=== PATIENT | female | born 1990 | race Caucasian/White ===

== ENCOUNTER 2016-07-02 07:49 | Emergency (ER) | payer BC ==
[~2016-07-02] VITALS: Ht 172.7 cm; Wt 117.9 kg
[~2016-07-02 07:49] MED LIST: AMOXICILLIN500 M2 PO; AMOXICILLIN500 M3 PO; AMOXICILLIN500 MG PO; BACTRIM DS 8001 TA1 PO; CARAFATE1 G1 PO; CLARITIN10 MG PO; COLACE100 MG PO; FLEXERIL10 MG PO; FLONASE 0.05% 121 EA NAS; HYDROCODONE BIT1 T11 PO; KENALOG0.1% TP; MOTRIN800 MG PO; Meclizine25 MG PO; NKHM PO; NORCO 325 MG-101 TAB PO; NORCO 325 MG-51 TAB PO; PHENERGAN W/ DE30 ML PO; PHENERGAN W/DM120 ML PO; PHENERGAN25 M1 PO; PREDNICOT10 MG PO; PRILOSEC20 M1 PO; PROAIR HFA0.09 MG/AC INH; PYRIDIUM100 MG PO; SINGULAIR10 M1 PO; SUNMARK OMEPRAZ20 M1 PO; ZITHROMAX Z PA250 MG PO; ZOFRAN4 MG PO
[2016-07-02 07:52] VITALS: BP 154/82
[2016-07-02] MEDS ORDERED: Motrin,Rufen800 MG PO (09:10)
== END 2016-07-02 09:21 | disposition home or self-care (01) ==
LOC: ED 07:49
DX: M79.671 Pain in right foot (principal); F41.9 Anxiety disorder, unspecified; K21.9 Gastro-esophageal reflux disease without esophagitis

== ENCOUNTER 2016-08-16 20:43 | Emergency (ER) | payer OTHER, BC ==
[~2016-08-16] VITALS: Ht 172.7 cm; Wt 117.9 kg
[~2016-08-16 20:43] MED LIST changes: +Motrin,Rufen800 MG PO
[2016-08-16 21:12] VITALS: BP 145/92
[2016-08-16] MEDS ORDERED: NAPROSYN500 MG PO (22:48)
[2016-08-16] MEDS ORDERED: CYCLOBENZAPRINE10 MG PO (22:48)
== END 2016-08-16 23:15 | disposition home or self-care (01) ==
LOC: ED 20:43
DX: S16.1XXA Strain of muscle, fascia and tendon at neck level, initial encounter (principal); S40.022A Contusion of left upper arm, initial encounter; V49.59XA Passenger injured in collision with other motor vehicles in traffic accident, initial encounter; Y93.89 Activity, other specified; Y92.413 State road as the place of occurrence of the external cause; Y99.9 Unspecified external cause status

== ENCOUNTER → 2016-09-06 | Outpatient (CLI) | payer BC ==
[~2016-09-06] MED LIST changes: +CYCLOBENZAPRINE10 MG PO; +NAPROSYN500 MG PO
[2016-09-06 16:08] LABS: BASO # 0.1 10*3/uL (0.0-0.1); BASO % 0.7 % (0.0-1.0); EOS # 0.1 10*3/uL (0.0-0.4); EOS % 0.9 % (1.0-4.0); HEMATOCRIT 37.7 % (37.0-47.0); HEMOGLOBIN 12.2 g/dl (12.0-16.0); LYMPH # 1.6 10*3/uL (1.3-4.4); MEAN CELL VOLUME 83.6 fl (81.0-99.0); MEAN CORPUSCULAR HGB 27.1 pg (27.0-31.0); MEAN CORPUSCULAR HGB CONC 32.4 g/dl (33.0-37.0); MEAN PLATELET VOLUME 9.8 fl (9.6-12.3); MONO # 0.6 10*3/uL (0.1-1.0); MONO % 7.2 % (3.0-9.0); NEUT # 5.8 10*3/uL (2.3-7.9); PLATELET COUNT AUTOMATED 326 10*3/uL (130-400); RED BLOOD COUNT 4.51 10*6/uL (4.10-5.10); RED CELL DISTRI WIDTH 13.5 % (0-14.5); WHITE BLOOD COUNT 8.2 10*3/uL (4.8-10.8)
[2016-09-06 16:38] LABS: ALBUMIN 3.3 gm/dl (3.1-4.5); ALKALINE PHOSPHATASE 102 U/L (45-117); BILIRUBIN, TOTAL 0.3 mg/dl (0.2-1.0); BUN 15 mg/dl (7-24); CARBON DIOXIDE 26 mmol/L (21-32); CHLORIDE 106 mmol/L (98-107); EST GLOM FILT AFRICAN AMERICAN > 60 ml/min; GLUCOSE 84 mg/dL (65-99); SGOT/AST 12 IU/L (3-35); SGPT/ALT 22 U/L (12-78); SODIUM 141 mmol/L (136-145); TOTAL PROTEIN 7.5 gm/dL (6.4-8.2)
[2016-09-06 16:58] LABS: VITAMIN D, 25-HYDROXY 12.4 ng/mL (30-100)
[2016-09-06 16:59] LABS: FOLIC ACID 9.58 ng/mL (>5.38)
[2016-09-07 18:04] LABS: H.PYLORI IGM <9.0 units (0.0-8.9); H.PYLORI IgA 163170 <9.0 units (0.0-8.9)
== END | disposition home or self-care (01) ==
LOC: LAB 15:29
PROVIDERS: Nurse Practitioner Family
DX: N91.2 Amenorrhea, unspecified (principal); R53.83 Other fatigue; R12 Heartburn

== ENCOUNTER 2016-11-02 21:41 | Emergency (ER) | payer SELFPAY ==
[~2016-11-02] VITALS: Ht 172.7 cm; Wt 117.9 kg
[2016-11-02] MEDS ORDERED: VITAMIN D50000 I3 PO (21:50)
[2016-11-02] MEDS ORDERED: OMEPRAZOLE D/R20 MG PO (21:50)
[2016-11-02] MEDS ORDERED: B121000 MCG/1 IM (21:51)
[2016-11-02 22:30] LABS: BASO # 0.1 10*3/uL (0.0-0.1); BASO % 0.5 % (0.0-1.0); EOS % 0.4 % (1.0-4.0); HEMATOCRIT 40.5 % (37.0-47.0); LYMPH # 2.1 10*3/uL (1.3-4.4); LYMPH % 22.3 % (27.0-41.0); MEAN CELL VOLUME 83.3 fl (81.0-99.0); MEAN CORPUSCULAR HGB 26.7 pg (27.0-31.0); MEAN CORPUSCULAR HGB CONC 32.1 g/dl (33.0-37.0); MEAN PLATELET VOLUME 9.9 fl (9.6-12.3); MONO # 0.6 10*3/uL (0.1-1.0); MONO % 6.8 % (3.0-9.0); NEUT # 6.5 10*3/uL (2.3-7.9); NEUT % 69.8 % (47.0-73.0); PLATELET COUNT AUTOMATED 334 10*3/uL (130-400); RED BLOOD COUNT 4.86 10*6/uL (4.10-5.10); WHITE BLOOD COUNT 9.3 10*3/uL (4.8-10.8)
[2016-11-02 22:49] LABS: ALBUMIN 3.4 gm/dl (3.1-4.5); ALKALINE PHOSPHATASE 107 U/L (45-117); BILIRUBIN, TOTAL 0.2 mg/dl (0.2-1.0); BUN 15 mg/dl (7-24); CARBON DIOXIDE 25 mmol/L (21-32); CHLORIDE 106 mmol/L (98-107); EST GLOM FILT AFRICAN AMERICAN > 60 ml/min; GLUCOSE 110 mg/dL (65-99); POTASSIUM 3.5 mmol/L (3.5-5.1); SGOT/AST 14 IU/L (3-35); SGPT/ALT 28 U/L (12-78); SODIUM 137 mmol/L (136-145); TOTAL PROTEIN 7.8 gm/dL (6.4-8.2)
[2016-11-02 22:52] LABS: TROPONIN I < 0.015 ng/ml (<0.045)
[2016-11-02 23:00] LABS: BILIRUBIN NEGATIVE (NEGATIVE); BLOOD TRACE-INTACT (NEGATIVE); CLARITY CLEAR (CLEAR); COLOR YELLOW (YELLOW); GLUCOSE NEGATIVE (NEGATIVE); KETONE NEGATIVE (NEGATIVE); LEUKO ESTERASE NEGATIVE (NEGATIVE); NITRITE NEGATIVE (NEGATIVE); PROTEIN NEGATIVE (NEGATIVE); SPECIFIC GRAVITY 1.025 (1.005-1.030); UROBILINOGEN 0.2 E.U./dl (0.2-1.0)
[2016-11-02 23:08] LABS: BACTERIA TRACE; URINE REFLEX COMMENT YES (NO); WBC 0-2 wbc/hpf (0-5)
[2016-11-03 00:15] VITALS: BP 134/80
[2016-11-03] MEDS ORDERED: MECLIZINE HCL25 M2 PO (00:20)
== END 2016-11-03 00:42 | disposition home or self-care (01) ==
LOC: ED 21:41
PROVIDERS: Physician Assistant
DX: R00.0 Tachycardia, unspecified (principal); R42 Dizziness and giddiness

== ENCOUNTER 2017-07-13 13:35 | Emergency (ER) | payer OTHER ==
[~2017-07-13] VITALS: Ht 170.1 cm; Wt 131.5 kg
[~2017-07-13 13:35] MED LIST changes: +B121000 MCG/1 IM; +MECLIZINE HCL25 M2 PO; +OMEPRAZOLE D/R20 MG PO; +VITAMIN D50000 I3 PO
[2017-07-13 13:37] VITALS: BP 152/70
[2017-07-13 14:37] LABS: BILIRUBIN NEGATIVE (NEGATIVE); BLOOD 3+ (NEGATIVE); CLARITY CLEAR (CLEAR); COLOR YELLOW (YELLOW); GLUCOSE NEGATIVE (NEGATIVE); KETONE NEGATIVE (NEGATIVE); LEUKO ESTERASE NEGATIVE (NEGATIVE); NITRITE NEGATIVE (NEGATIVE); SPECIFIC GRAVITY 1.025 (1.005-1.030); UROBILINOGEN 0.2 E.U./dl (0.2-1.0)
[2017-07-13 14:44] LABS: BASO # 0.1 10*3/uL (0.0-0.1); BASO % 0.7 % (0.0-1.0); EOS % 0.5 % (1.0-4.0); HEMATOCRIT 40.1 % (37.0-47.0); HEMOGLOBIN 12.9 g/dl (12.0-16.0); LYMPH # 1.7 10*3/uL (1.3-4.4); LYMPH % 19.7 % (27.0-41.0); MEAN CELL VOLUME 83.4 fl (81.0-99.0); MEAN CORPUSCULAR HGB 26.8 pg (27.0-31.0); MEAN CORPUSCULAR HGB CONC 32.2 g/dl (33.0-37.0); MEAN PLATELET VOLUME 9.6 fl (9.6-12.3); MONO # 0.5 10*3/uL (0.1-1.0); MONO % 6.3 % (3.0-9.0); NEUT # 6.2 10*3/uL (2.3-7.9); NEUT % 72.6 % (47.0-73.0); PLATELET COUNT AUTOMATED 382 10*3/uL (130-400); RED BLOOD COUNT 4.81 10*6/uL (4.10-5.10); RED CELL DISTRI WIDTH 13.6 % (0-14.5); WHITE BLOOD COUNT 8.5 10*3/uL (4.8-10.8)
[2017-07-13 14:45] LABS: BACTERIA TRACE; WBC 0-2 wbc/hpf (0-5)
[2017-07-13 15:00] LABS: ALBUMIN 3.5 gm/dl (3.1-4.5); ALKALINE PHOSPHATASE 110 U/L (45-117); BUN 14 mg/dl (7-24); CHLORIDE 102 mmol/L (98-107); POTASSIUM 3.9 mmol/L (3.5-5.1); SGOT/AST 11 IU/L (3-35); SGPT/ALT 25 U/L (12-78); SODIUM 137 mmol/L (136-145); TOTAL PROTEIN 7.7 gm/dL (6.4-8.2)
[2017-07-13] MEDS ORDERED: ZOFRAN ODT4 MG SL (15:09)
== END 2017-07-13 16:30 | disposition home or self-care (01) ==
LOC: ED 13:35
PROVIDERS: Physician Assistant
DX: R11.0 Nausea (principal); R42 Dizziness and giddiness; K21.9 Gastro-esophageal reflux disease without esophagitis; Z79.899 Other long term (current) drug therapy

== ENCOUNTER 2017-10-10 22:03 | Emergency (ER) | payer OTHER ==
[~2017-10-10] VITALS: Ht 172.7 cm; Wt 127.0 kg
[~2017-10-10 22:03] MED LIST changes: +ZOFRAN ODT4 MG SL
[2017-10-10 22:04] VITALS: BP 128/84
[2017-10-10] MEDS ORDERED: Motrin,Rufen800 MG PO (23:33)
== END 2017-10-10 23:55 | disposition home or self-care (01) ==
LOC: ED 22:03
DX: S93.602A Unspecified sprain of left foot, initial encounter (principal); Z79.899 Other long term (current) drug therapy; X50.1XXA Overexertion from prolonged static or awkward postures, initial encounter; Y93.89 Activity, other specified; Y92.89 Other specified places as the place of occurrence of the external cause; Y99.8 Other external cause status

== ENCOUNTER 2017-10-18 19:19 | Emergency (ER) | payer OTHER ==
[~2017-10-18] VITALS: Ht 172.7 cm; Wt 117.9 kg
[2017-10-18 19:20] VITALS: BP 131/77
== END 2017-10-18 20:53 | disposition home or self-care (01) ==
LOC: ED 19:19
DX: S93.402A Sprain of unspecified ligament of left ankle, initial encounter (principal); Z79.899 Other long term (current) drug therapy; W01.0XXA Fall on same level from slipping, tripping and stumbling without subsequent striking against object, initial encounter; Y93.89 Activity, other specified; Y92.89 Other specified places as the place of occurrence of the external cause; Y99.8 Other external cause status

== ENCOUNTER 2018-02-19 10:17 | Emergency (ER) | payer SELFPAY ==
[~2018-02-19] VITALS: Ht 170.1 cm; Wt 131.5 kg
[2018-02-19 10:20] VITALS: BP 125/57
[2018-02-19] MEDS ORDERED: IBUPROFEN600 MG PO (12:10)
[2018-02-19] MEDS ORDERED: AMOXICILLIN500 M2 PO (12:10)
== END 2018-02-19 12:21 | disposition home or self-care (01) ==
LOC: ED 10:17
DX: J02.9 Acute pharyngitis, unspecified (principal); R09.81 Nasal congestion; R09.89 Other specified symptoms and signs involving the circulatory and respiratory systems; R59.0 Localized enlarged lymph nodes; J39.2 Other diseases of pharynx; R05 Cough; R52 Pain, unspecified; R50.9 Fever, unspecified; Z79.899 Other long term (current) drug therapy